=== PATIENT | female | born 1950 | race Caucasian/White ===

== ENCOUNTER 2018-04-12 07:18 | Outpatient (CLI) | payer MEDICARE ==
--- NOTE | 2018-04-12 10:30 | CT ---
PRE AND POSTCONTAST ENHANCED CT IMAGES SOFT TISSUE NECK: HISTORY: A 67-year-old female with a history of hypercalcemia. FINDINGS: Pre- and postcontrast-enhanced CT images soft tissue neck obtained. 25 and 65 second delayed images obtained. The 65-second is still quite early and has increased enhancement in the arterial phase compared to th e 25-second images. Images demonstrate a well-circumscribed enhancing mass seen anterior to the left carotid space just b elow the bifurcation of the carotid arteries. This lesion measures 10 x 10 x 6 mm and is medial to t he sternocleidomastoid muscle and anterior to the left carotid space. The lesion is just above the t rue vocal cords being just lateral to the upper margin of the left thyroid cartilage. This may repre sent a parathyroid adenoma. No other soft tissue masses or lesions seen. IMPRESSION: Findings concerning for a left upper parathyroid adenoma. Please see above dictation. The lesion is on axial precontrast-enhanced images 55 of 75 and 57 of 77 on the delayed contrast-enhanced images. POS: ALANNAH
[2018-04-12] MEDS ORDERED: Iopamidol 370 76% 100 ML VIAL ONE (11:17)
[2018-04-12] MEDS ORDERED: Iopamidol 370 76% 50 ML VIAL FS ONE (11:17)
--- NOTE | 2018-04-12 14:23 | NM ---
NUCLEAR MEDICINE PARATHYROID WITH SPECT CT IMAGING: RADIOPHARMACEUTICAL: 25.3 mCi Technetium 99m sestamibi IV. FINDINGS: There is abnormal scintigraphic uptake of the left neck just lateral to the left thyroid cartilage, a nterior to the contents of the left carotid sheath and deep to the left sternocleidomastoid muscle. This corresponds to a soft tissue mass documented on the concurrent CT neck exam. IMPRESSION: Evidence of left neck parathyroid adenoma. POS: KAREY
== END 2018-04-12 07:19 | disposition home or self-care (01) ==
LOC: CT 07:18
PROVIDERS: ATTEND Otolaryngology Plastic Surgery within the Head & Neck
DX: D35.1 Benign neoplasm of parathyroid gland (principal); E21.0 Primary hyperparathyroidism
CPT/HCPCS: 70492; 78072; 82565; A9500